=== PATIENT | female | born 1980 | race Caucasian/White ===

== ENCOUNTER → 2018-07-14 | Outpatient (CLI) | payer OTHER ==
--- NOTE | 2018-07-14 13:58 | RADIOLOGY IMAGING REPORT ---
FACILITY: [facility] PATIENT NAME: Percy Chan : 1980 MR: [id number] V: [id number] EXAM DATE: ORDERING PHYSICIAN: CHI MCCOY TECHNOLOGIST: Location: [facility] [place] Patient: Percy Chan : 1980 Visit/Account:[id number] Date of Sevice: 07/14/2018 TESTICULAR HISTORY: Cyst in the head epididymis on the left identified on 2014 COMPARISON: October 16, 2014 FINDINGS: Testes: Right testicle measures 4.9 x 2.5 x 3.7 cm. The left testicle measures 4.3 x 2.7 x 3.5 cm. Symmetric and unremarkable blood flow documented by color and Duplex Doppler ultrasound. Epididymides: The head epididymis on the right measures 1.17 cm the head epididymis on the left measu res 0.7 cm there is no demonstration of an epididymal cyst or mass. Blood flow is unremarkable in ea ch epididymis by color Doppler ultrasound. Hydrocele: Small bilateral Varicocele: None. IMPRESSION: Small bilateral hydroceles No demonstration of an epididymal cyst Report Dictated By: Marilyn Camejo MD at 07/14/2018 1:50 PM Report E-Signed By: Marilyn Camejo MD at 07/14/2018 1:53 PM WSN:[email or web address]
== END ==
LOC: US 07:25
PROVIDERS: ATTEND Urology
DX: N43.3 Hydrocele, unspecified (principal)
CPT/HCPCS: 76870